=== PATIENT | male | born 1975 | race Caucasian/White ===

== ENCOUNTER 2016-06-16 11:58 | Emergency (ER) | payer BC ==
--- NOTE | ~2016-06-16 | CR72 ---
[facility]. [facility] A Service of [facility] RADIOLOGY TEXT RESULTS PATIENT: KETURAH MIRANDA JR LOCATION: SED : 73 UNIT #: [id number] AGE: [address]: Nitesh Crisostomo MD SEX: M ORDER DR: [id number] [place] [id number] E MR#: [id number] Acc #: [id number] NAME: KETURAH MIRANDA JR : 1975 SEX: M STUDY DATE/TIME: 06/16/2016 11:47 UNIT: SED ROOM: STUDY DESCRIPTION: CR Chest Single View Portable Attending Physician: Nitesh Crisostomo M.D. Ordering Physician: Nitesh Crisostomo M.D. Primary Care Physician: Dariana Low M.D. MEDICAL IMAGING REPORT This report is preliminary unless electronic signature is present. EXAM Chest portable, 06/16/2016 11:47 hours HISTORY 40-year-old man complaining of chest pain in the mid sternal chest for 2 days. History of hypertension. COMPARISON 08/16/2014 FINDINGS Portable upright chest demonstrates low lung volumes. Heart size is at the upper limits of normal and unchanged from 08/16/2014. Aortic contours are normal. The lungs are clear and there are no effusions. IMPRESSION Stable heart size at the upper limits of normal. Normal contours to the aorta. The lungs are clear and there are no effusions. Dictated by... Carri Cao M.D. THIS IS AN ELECTRONICALLY VERIFIED REPORT Carri Cao M.D. at 06/16/2016 2:34 PM Anaid TD: 06/16/2016 13:30 JOB #: [id number] MEDICAL IMAGING REPORT Page 1 of 1
--- NOTE | ~2016-06-16 | EKG ---
PATIENT: KETURAH MIRANDA UNIT #: [id number] Ventricular Rate: 63 BPM Atrial Rate: 63 BPM P-R Interval: 152 ms QRS Duration: 88 ms Q-T Interval: 442 ms QTC Calculation(Bezet): 452 ms P [place]: -24 degrees Calculated R [place]: 51 degrees Calculated T [place]: 31 degrees Diagnosis Line: Normal sinus rhythm Diagnosis Line: Normal ECG Diagnosis Line: When compared with ECG of 16-AUG-2014 11:08, Diagnosis Line: No significant change was found Diagnosis Line: Confirmed by JUDAH LEON MD ([id number]) on 06/25/2016 Diagnosis Line: 11:50:51 AM INTERPRETING MD: EDWARD SHEARER
[2016-06-16 11:56] LABS: BASOPHIL# 0.1 X10e3 (0-0.3); BASOPHIL% 1.1 % (0-2.5); EOSINOPHIL# 0.7 X10e3 (0-0.7); EOSINOPHIL% 8.6 % (0.0-7.0); HEMATOCRIT 43.7 % (38.0-50.0); HEMOGLOBIN 14.7 gm/dL (13.0-16.0); LYMPHOCYTE# 1.8 X10e3 (1.0-3.5); LYMPHOCYTE% 21.6 % (17.0-45.0); MEAN CELL VOLUME 88.6 FL (83-96); MEAN CORPUSCULAR HEMOGLOBIN 29.8 PG (28-34); MEAN CORPUSCULAR HGB CONC 33.7 g/dL (30-36); MEAN PLATELET VOLUME 9.7 FL (6.5-11.5); MONOCYTE# 0.5 X10e3 (0-1.0); MONOCYTE% 5.9 % (3.0-12.0); NEUTROPHIL# 5.4 X10e3 (1.5-7.1); NEUTROPHIL% 62.8 % (40-75); PLATELET COUNT 181 X10e3 (140-420); RED BLOOD COUNT 4.93 X10e (3.90-5.60); RED CELL DISTRIBUTION WIDTH 13.5 % (11.0-15.5); WHITE BLOOD COUNT 8.5 X10e3 (4.0-10.5)
[2016-06-16 11:57] LABS: DIFF IND NO
[~2016-06-16 11:58] MED LIST: ACYCLOVIR; ANUSOL SUPP1 SUPP PR; ASPIRINEC PO; BACTRIM DS TABL1 TA2; CIPRO XR 500 M500 MG PO; CRESTOR PO; DICLOFENAC PO; EXCEDRIN MIGRA1 EACH PO; FLAGYL PO; IBUPROFEN PO; MEDROL PO; NORCO 7.5-3251 EACH PO; NORVASC; NORVASC PO; PREDNISONE; ULTRAM PO; VITAMIN B12-FO1 EACH; ZOFRANODT PO
[2016-06-16 12:09] LABS: POC - TROPONIN <0.05 ng/mL (<=0.05)
[2016-06-16 12:16] LABS: ALBUMIN SERUM 4.3 g/dL (3.5-5.0); BILIRUBIN, DIRECT 0.2 mg/dL (0.0-0.2); BILIRUBIN,INDIRECT 0.8 mg/dL (0.0-0.9); BUN/CREATININE RATIO 12.22; CALCIUM SERUM 8.6 mg/dL (8.4-10.2); CREATININE SERUM 0.9 mg/dL (0.6-1.4); GLOM FILT RATE Estimated 105.7 mL/min (>60); POTASSIUM 3.6 mmol/L (3.5-5.1); PROTEIN TOTAL SERUM 7.1 g/dL (6.0-8.3)
== END 2016-06-16 13:06 | disposition home or self-care (01) ==
LOC: SED 11:58
PROVIDERS: Emergency Medicine
DX: R07.9 Chest pain, unspecified (principal); R03.0 Elevated blood-pressure reading, without diagnosis of hypertension; F17.210 Nicotine dependence, cigarettes, uncomplicated
CPT/HCPCS: 36415; 71010; 80048; 80076; 82553; 84484; 85025; 93005; 99284